=== PATIENT | female | born 1980 | race Caucasian/White ===

== ENCOUNTER → 2017-05-20 | Outpatient (CLI) | payer BC ==
[~2017-05-20] MED LIST: IBUP-103 PO; NAPR-1169 PO
[2017-05-26 00:35] LABS: CHLAMYDIA TRACH RNA*** NOT DETECTED (NOT DETECTED); GC (NEIS GONORRHOEAE)RNA** NOT DETECTED (NOT DETECTED)
== END | disposition home or self-care (01) ==
LOC: C.LABSPEC 15:42
PROVIDERS: ATTEND Physician Assistant
DX: Z30.430 Encounter for insertion of intrauterine contraceptive device (principal)

== ENCOUNTER 2017-05-22 14:34 | Emergency (ER) | payer BC ==
[~2017-05-22] VITALS: Ht 170.2 cm; Wt 63.1 kg
[2017-05-22 14:38] VITALS: TEMP 37.5; Ht 170.2 cm; Wt 63.1 kg
[2017-05-22] MEDS: KETOROLAC TROMETHAMINE 60 MG/2 ML VIAL IM STA ×2 (15:18→16:10)
[2017-05-22] MEDS ORDERED: IBUP-103 PO (15:32)
--- NOTE | 2017-05-22 16:15 | DIAGNOSTIC IMAGING REPORT ---
PELVIC ULTRASOUND, TRANSABDOMINAL AND TRANSVAGINAL HISTORY: cramping/pelvic pain 2 days s/p Mirena placement COMPARISON: None. FINDINGS: Uterus: 7.4 x 4.1 x 4.9 cm. Endometrial stripe: The intrauterine device is in good position. The endometrium measures 8 mm in thickness. Right ovary: Normal in size and demonstrates normal color flow. Left ovary: Normal in size and demonstrates normal color flow. Miscellaneous:No pelvic free fluid. IMPRESSION: No significant abnormality identified within the pelvis. The intrauterine device is in good position. Electronically signed by: Isai Roach M.D. 05/22/2017 4:14 PM Dictated Date/Time: 05/22/2017 4:12 PM
[2017-05-22] MEDS ORDERED: NAPR-1169 PO (16:52)
--- NOTE | 2017-05-22 16:54 | EMERGENCY ROOM VISIT NOTE ---
History First contact with patient: 14:51 Chief Complaint: PAIN (GENERALIZED) Stated Complaint: PAIN AFTER IUD INSERTION History of Present Illness The patient is a 37 year old female who presents to the Emergency Room with complaints of uterine cramping since Tuesday. The patient states she had a Mirena IUD placed on Tuesday, and is now experiencing significant cramping. Patient states she was not given any medications to help soften the cervix, but was required to premedicate with ibuprofen prior to the procedure. She states while having the procedure performed, the card runner did need to dilate her cervix. The Mirena was placed without difficulty, however the patient states she has never had an IUD placed before, does not have any children. She states she had some mild cramping and pain immediately after the procedure, then it continued to worsen Tuesday and yesterday. The patient states the pain is okay when she stays at a vet with ibuprofen, but when it gets ahead of her, she is unable to tolerate it. At 9:00 this morning, the patient took 600 mg of ibuprofen. One hour later, she took another 200 mg. This did not help with her pain. At 11:00, the patient took 50 mg of tramadol, which she states did not help. The tramadol was her father's prescription. She states she is feeling better than no medication, but continues to have severe pain. She states proximally one hour prior to arrival, she did take another 600 mg of ibuprofen. The patient states she has had some spotting, and the bleeding has been heavier than previously. The patient denies any urinary symptoms including dysuria, pain with urination, flank pain, hematuria, or other associated symptoms. The patient states there is no chance she could possibly be . Review of Systems A complete 10 point review of systems was reviewed with the patient with pertinent positives and negatives as per history of present illness. All else were negative. Social History Smoking Status: Current Every Day Smoker Current/Historical Medications Scheduled Naproxen (Naprosyn), 500 MG PO BID Scheduled PRN Ibuprofen Tab (Advil), 600-800 MG PO UD PRN for Pain Physical Exam Vital Signs Date Time Temp Pulse Resp B/P (MAP) Pulse Ox O2 Delivery O2 Flow Rate FiO2 05/22/17 14:38 37.5 96 18 108/71 96 Room Air Physical Exam VITALS: Vitals are noted on the nurse's note and reviewed by myself. Vital signs stable. GENERAL: This is a 37-year-old white female, in no acute distress, nondiaphoretic, well-developed well-nourished. SKIN: The skin was without rashes, erythema, edema, or bruising. There is no tenting of the skin. Capillary reflex less than 2 seconds. HEAD: Normocephalic atraumatic. EARS: External auditory canals clear, tympanic membranes pearly smith without erythema or effusion bilaterally. EYES: Pupils equal round and reactive to light and accommodation. Conjunctivae without injection, sclerae without icterus. Extraocular movements intact. NOSE: Patent, turbinates without inflammation or discharge. No sinus tenderness. MOUTH: Mucous membranes moist. Tonsils are not enlarged. Pharynx without erythema or exudate. Uvula midline. Airway patent. Tongue does not deviate. NECK: Supple without nuchal rigidity. No lymphadenopathy. No thyromegaly. Cervical spine is nontender. No JVD. HEART: Regular rate and rhythm without murmurs gallops or rubs. LUNGS: Clear to auscultation bilaterally without wheezes, rales or rhonchi. No dullness to percussion. No retractions or accessory muscle use. ABDOMEN: Positive bowel sounds x 4. Normal tympanic percussion. Soft, nontender, without masses or organomegaly. Caldwell sign negative. No guarding or rebound tenderness. No CVA tenderness. MUSCULOSKELETAL: No muscle atrophy, erythema, or edema noted. Full range of motion without joint tenderness in all extremities. No tenderness to palpation. Normal gait. Strength 5/5 throughout. NEURO: Patient was alert and oriented to person place and time. Normal sensation to light and sharp touch. Deep tendon reflexes 2+ throughout. No focal neurological deficits. Medical Decision & Procedures ER Provider Diagnostic Interpretation: PELVIC ULTRASOUND, TRANSABDOMINAL AND TRANSVAGINAL HISTORY: cramping/pelvic pain 2 days s/p Mirena placement COMPARISON: None. FINDINGS: Uterus: 7.4 x 4.1 x 4.9 cm. Endometrial stripe: The intrauterine device is in good position. The endometrium measures 8 mm in thickness. Right ovary: Normal in size and demonstrates normal color flow. Left ovary: Normal in size and demonstrates normal color flow. Miscellaneous:No pelvic free fluid. IMPRESSION: No significant abnormality identified within the pelvis. The intrauterine device is in good position. Electronically signed by: Isai Roach M.D. 05/22/2017 4:14 PM Dictated Date/Time: 05/22/2017 4:12 PM Medications Administered Medications (Trade) Dose Ordered Sig/Carrie Route Start Time Stop Time Status Last Admin Dose Admin Naproxen (Naproxen 250MG Home Pack) 1 homepack UD ONCE PO 05/22/17 17:00 05/22/17 17:01 DC 05/22/17 17:04 1 HOMEPACK Medical Decision The patient presents today complaining of significant menstrual-like cramping which has been present since Tuesday. On Tuesday, the patient did have a Mirena IUD placed in her uterus. The procedure was competed successfully, and there is no concern for uterine rupture. The patient has been taking ibuprofen relatively consistently, but she does while the patient to get ahead of her on occasion. The patient has tried taking her father's tramadol, which did not help with her symptoms. I did offer the patient Toradol, and she was initially in agreement with this medication in the emergency department, but when the nurse went to give it to her, she refused, stating she does not feel that she wants the injection site pain for possibly 8 hours of pain relief. It was at this point that the patient also states she had taken 600 mg ibuprofen one hour prior to arrival. Ultrasound was performed which did not show any evidence of uterine perforation or misplaced IUD. I discussed these results with the patient at bedside, and advised her that she will most likely be experiencing cramping and abnormal bleeding for at least the next month. I discussed with her that she should continue to follow closely with her card runner, especially if she has the second discomfort for longer than that. I encouraged her to use NSAIDs to help with the pain. I offered the patient a prescription for naproxen, as I have seen this help with menstrual-type cramping in some patients better than ibuprofen. The patient was in agreement with trying this medication. Discharge instructions were reviewed and patient was discharged home in good condition. Differential diagnosis includes: Ectopic , infection, PID, urinary tract infection, myometrial embedment, uterine or cervical perforation, allergic reaction, malignancy, and others Impression Primary Impression: Uterine cramping Additional Impression: IUD complication Departure Information Dispostion Home / Self-Care Condition GOOD Prescriptions Naproxen (Naprosyn) 500 Mg Tab 500 MG PO BID, #60 TAB Prov: Charo Gonzales PA-C 05/22/17 Referrals No Doctor, Assigned (PCP) Patient Instructions Levonorgestrel intrauterine device IUD, My [facility] Additional Instructions You seen in the emergency department today for cramping related to the IUD. As discussed, cramping can last for several weeks to months. Use a heating pad to help with cramps and pain. Please use a barrier device between the heat and your skin. You were given a prescription for naproxen to be taken twice daily. This is in place of any ibuprofen or other NSAIDs which you're taking. If you choose not to take the naproxen, you can take ibuprofen instead. Follow the following instructions. Ibuprofen(Motrin, Advil) may be used for fever or pain. Use 600mg every six hours as needed. Take with food. Avoid using more than 2400mg in a 24 hour period. Do not use 2400mg per day for more than three consecutive days without physician direction. Prolonged inappropriate use can lead to stomach upset or ulcers. (AND/OR) Acetaminophen(Tylenol) may be used for fever or pain. Use 1000mg every six hours as needed. Avoid using more than 3000mg in a 24 hour period. You may take Tylenol in between doses of ibuprofen or naproxen, but do not exceed the recommended daily dosages. Please follow up with your card runner regarding further management and care. Return to the emergency department for significant vaginal bleeding, worsening cramping despite medication, fever, chills, nausea, vomiting, or other concerning symptoms. Problem Qualifiers Additional Impression: IUD complication Device complication type: unspecified Encounter type: initial encounter Qualified Codes: T83.9XXA - Unspecified complication of genitourinary prosthetic device, implant and graft, initial encounter
[2017-05-22] MEDS ORDERED: NAPROSYN HOME PACK 250 MG VIAL PO ONE (17:00)
[2017-05-22 17:14] VITALS: BP 112/71; PULSE 88; O2SAT 96
== END 2017-05-22 17:15 | disposition home or self-care (01) ==
LOC: C.EDB 14:35 → C.EDC 17:15
DX: N94.89 Other specified conditions associated with female genital organs and menstrual cycle (principal); Z97.5 Presence of (intrauterine) contraceptive device; F17.200 Nicotine dependence, unspecified, uncomplicated